=== PATIENT | female | born 1980 | race Caucasian/White ===

== ENCOUNTER 2017-02-02 06:52 | Emergency (ER) | payer OTHER ==
[2017-02-02 07:17] VITALS: TEMP 98.2; BMI 22.0
[2017-02-02] MEDS ORDERED: SODIUM CHLORIDE 1,000 ML IV STA (07:35)
[2017-02-02] MEDS ORDERED: ONDANSETRON 4 MG/2 ML VIAL IVPUSH ONE (07:49)
[2017-02-02] MEDS ORDERED: ACETAMINOPHEN 1000 MG/100 ML VIAL (NON FORMULARY) IVPB ONE (07:49)
--- NOTE | 2017-02-02 07:51 | PDOC ---
History of Present Illness - General Chief Complaint: Pain, Acute Stated Complaint: VOMITING, ABDOMINAL PAIN Time Seen by Provider: 02/02/17 07:35 - History of Present Illness Initial Comments: 02/02/17 07:46 36 yo F with no pmh who presents with left sided flank pain. Pt. reports crampy , dull, unremitting, left sided flank pain with radiation to LLQ beginning at 0503 this AM. Pain was initially sharp,but now dull. Endorses 3 episodes of non biliary, non bloody emesis this AM and subjective fevers. Pain worse with supine positioning. No alleviators. Denies chest pain, SOB, Lightheadedness, diarrhea, constipation, dysuria, hematuria, blood per rectum, and weakness. Currently menstruating. Denies h/o renal stones, or pyelonephritis. No OTC analgesia. No NKDA. Past History - Past Medical History Allergies/Adverse Reactions: Allergies Allergy/AdvReac Type Severity Reaction Status Date / Time No Known Allergies Allergy Verified 02/02/17 07:11 Home Medications: Ambulatory Orders Naproxen [Naprosyn -] 250 mg PO QID PRN 5 Days #20 tablet MDD 4 02/02/17 COPD: No - Reproductive History Is Patient Now?: No - Suicide/Smoking/Psychosocial Hx Smoking History: Never smoked Have you smoked in the past 12 months: No Information on smoking cessation initiated: No Hx Alcohol Use: Yes (socially) Drug/Substance Use Hx: No Substance Use Type: None Review of Systems - Review of Systems Comments:: 02/02/17 07:57 GENERAL/CONSTITUTIONAL: No fever or chills. No weakness. HEAD, EYES, EARS, NOSE AND THROAT: No change in vision. No ear pain or discharge. No sore throat.- CARDIOVASCULAR: No chest pain or shortness of breath RESPIRATORY: No cough, wheezing, or hemoptysis. GASTROINTESTINAL:+ Abdominal LLQ pain. No nausea, vomiting, diarrhea or constipation. GENITOURINARY: + Suprapubic pain. No dysuria, frequency, or change in urination. MUSCULOSKELETAL: No joint or muscle swelling or pain. No neck or back pain. SKIN: No rash NEUROLOGIC: No headache, vertigo, loss of consciousness, or change in strength/ sensation. ENDOCRINE: No increased thirst. No abnormal weight change HEMATOLOGIC/LYMPHATIC: No anemia, easy bleeding, or history of blood clots. ALLERGIC/IMMUNOLOGIC: No hives or skin allergy. *Physical Exam - Vital Signs Last Vital Signs Temp Pulse Resp BP Pulse Ox 98.2 F 72 20 135/90 100 02/02/17 07:12 02/02/17 07:12 02/02/17 07:12 02/02/17 07:12 02/02/17 07:12 - Physical Exam Comments: 02/02/17 07:58 GENERAL: Awake, alert, and fully oriented, in no acute distress HEAD: No signs of trauma, normocephalic, atraumatic EYES: PERRLA, EOMI, sclera anicteric, conjunctiva clear ENT: Hearing grossly normal, nares patent, oropharynx clear without exudates. Moist mucosa NECK: Normal ROM, no JVD, or masses LUNGS: No distress, speaks full sentences, clear to auscultation bilaterally HEART: Regular rate and rhythm, normal S1 and S2, no murmurs, rubs or gallops, peripheral pulses normal and equal bilaterally. ABDOMEN: Soft, LLQ ttp and L sided flank ttp, normoactive bowel sounds. No guarding, no rebound. No masses. Absent olea or [place] point ttp. EXTREMITIES : Normal inspection, Normal range of motion, no edema. No clubbing or cyanosis. SKIN: Warm, Dry, normal turgor, no rashes or lesions noted. ED Treatment Course - LABORATORY CBC & Chemistry Diagram: 02/02/17 07:52 02/02/17 07:52 Medical Decision Making - Medical Decision Making 02/02/17 08:00 36 yo F with no pmh who arrives with crampy left sided flank pain with radiation to LLQ 2 hours [employer]. Asx. with non biliary, non bloody emesis this AM and subjective fevers. Denies dysuria, hematuria, blood per rectum, and is currently menstruating. Physical exam reveals left flank ttp and LLQ ttp. Pt. is hemodynamically stable. Patient exhibiting s/s of nephrolithiasis vs pyelnoephtritis ( less likely). Will obtain CT AP. Patient with symptom of mild LLQ ttp. It is reasonable, although unlikely to consider ovarian pathology ovarian torsion vs ovarian cyst. ED Course: CBC, CMP, Lipase, UA, Urine Cx. 1 L NS, Tylenol 1000 mg IVPB, Zofran [address] AP Urine Preg 02/02/17 09:03 CBC: 13.9 02/02/17 09:04 UA: 3 + Blood. Neg Nitrites 02/02/17 09:39 CT AP: 4 mm calculus along left posterolateral wall of bladder. 02/02/17 09:41 Pt. is stable and ready for d/c with return precautions. Naproxen sent to pharmacy. 02/02/17 09:50 Preliminary Leuk esterase negative *DC/Admit/Observation/Transfer Diagnosis at time of Disposition: Bladder calculi - Discharge Dispostion Disposition: HOME Condition at time of disposition: Stable Admit: No - Prescriptions Prescriptions: Naproxen [Naprosyn -] 250 mg PO QID PRN 5 Days #20 tablet MDD 4 PRN Reason: Pain - Referrals Referrals: Gama Evans MD [Primary Care Provider] - Khurram Camara MD [Staff Physician] - - Patient Instructions Printed Discharge Instructions: DI for Kidney Stones, DI for Extracorporeal Shock Wave Lithotripsy Additional Instructions: Please return to the emergency department with any new or worsening symptoms or concerns. Please follow up with urology if symptoms persist. - Post Discharge Activity - Attestations Physician Attestion: 02/02/17 09:45 I attest to the information provided in this note.
[2017-02-02] MEDS ORDERED: ACETAMINOPHEN INJECTION 100 ML IVPB ONE (07:59)
--- NOTE | 2017-02-02 08:06 | PDOC ---
Attending Attestation - Resident Resident Name: Rocky Campos - ED Attending Attestation I have performed the following: I have examined & evaluated the patient, The case was reviewed & discussed with the resident, I agree w/resident's findings & plan, Exceptions are as noted - HPI HPI: 02/02/17 08:09 36 year old female with no past medical history presents with left flank pain since 4 am. The patient was in her usual state of health yesterday. Noted to wake up at 4 am with left flank pain shart radiating to left lower quadrant. + nausea, and 3 episodes of vomiting. Denies fevers, chills. 1st time episode. currently on menstrual cycle, but denies dysuria, urinary frequency. - Physicial Exam PE: 02/02/17 08:12 GENERAL: NAD, AAOx3 ABD: soft, TTP LLQ. no rebound, no guarding. + left sided CVA tenderness - Medical Decision Making 02/02/17 08:14 Vital Signs Temp Pulse Resp BP Pulse Ox 98.2 F 72 20 135/90 100 02/02/17 07:12 02/02/17 07:12 02/02/17 07:12 02/02/17 07:12 02/02/17 07:12 36 year old F p/w likely pyelonephritis vs. kidney stone. Labs, UA, spiral CT. Symptom control and reassess. 02/02/17 09:30 CBC, BMP 02/02/17 07:52 02/02/17 07:52 CMP Sodium 140 mmol/L (136-145) 02/02/17 07:52 Potassium 4.0 mmol/L (3.5-5.1) 02/02/17 07:52 Chloride 108 mmol/L (98-107) H 02/02/17 07:52 Carbon Dioxide 27 mmol/L (21-32) 02/02/17 07:52 Anion Gap 5 (8-16) L 02/02/17 07:52 BUN 10 mg/dL (7-18) 02/02/17 07:52 Creatinine 0.7 mg/dL (0.55-1.02) 02/02/17 07:52 Creat Clearance w eGFR > 60 (>60) 02/02/17 07:52 Random Glucose 104 mg/dL (74-106) 02/02/17 07:52 Calcium 8.9 mg/dL (8.5-10.1) 02/02/17 07:52 Total Bilirubin 0.6 mg/dL (0.2-1.0) 02/02/17 07:52 AST 23 U/L (15-37) 02/02/17 07:52 ALT 25 U/L (12-78) 02/02/17 07:52 Alkaline Phosphatase 104 U/L (45-117) 02/02/17 07:52 Total Protein 7.2 g/dl (6.4-8.2) 02/02/17 07:52 Albumin 4.2 g/dl (3.4-5.0) 02/02/17 07:52 Lipase 101 U/L (73-393) 02/02/17 07:52 Urine Test Results Urine Color Yellow 02/02/17 07:52 Urine Appearance Clear 02/02/17 07:52 Urine pH 5.0 (5.0-8.0) 02/02/17 07:52 Ur Specific [place] >= 1.030 (1.001-1.035) 02/02/17 07:52 Urine Protein 1+ (NEGATIVE) H 02/02/17 07:52 Urine Glucose (UA) Negative (NEGATIVE) 02/02/17 07:52 Urine Ketones Negative (NEGATIVE) 02/02/17 07:52 Urine Blood 3+ (NEGATIVE) H 02/02/17 07:52 Urine Nitrite Negative (NEGATIVE) 02/02/17 07:52 Urine Bilirubin 1+ (NEGATIVE) H 02/02/17 07:52 Leukocyte esterase pending. If positive, treat with oral antibiotics then discharge. CT scan shows a 4 mm renal stone in the bladder. Discharge diagnosis: kidney stone
[2017-02-02 08:10] LABS: URINE APPEARANCE CLEAR; URINE BILIRUBIN 1+ (NEGATIVE); URINE BLOOD 3+ (NEGATIVE); URINE GLUCOSE (UA) NEGATIVE (NEGATIVE); URINE KETONE NEGATIVE (NEGATIVE); URINE NITRITE NEGATIVE (NEGATIVE); URINE UROBILINOGEN 0.2 mg/dL (0.2-1.0)
[2017-02-02] MEDS ORDERED: KETOROLAC TROMETHAMINE 30 MG/1 ML VIAL IVPUSH ONE (08:18)
[2017-02-02 08:21] LABS: URINE PROTEIN 1+ (NEGATIVE)
[2017-02-02 08:22] LABS: URINE COLOR YELLOW
[2017-02-02 08:32] LABS: BASOPHIL 0.4 % (0-2.0); EOSINOPHIL 0.2 % (0-4.5); MCH 31.3 pg (25.7-33.7); MCHC 34.4 g/dl (32.0-36.0); MEAN CELL VOLUME 91.1 fl (80-96); MEAN PLT VOLUME 8.6 fl (7.5-11.1); NEUTROPHILS 89.1 % (42.8-82.8); PLATELET COUNT 238 K/MM3 (134-434); RDW 13.3 % (11.6-15.6); WHITE BLOOD COUNT 13.9 K/mm3 (4.0-10.0)
[2017-02-02 08:34] LABS: ALBUMIN 4.2 g/dl (3.4-5.0); ALK PHOS 104 U/L (45-117); ANION GAP 5 (8-16); BILIRUBIN,TOTAL 0.6 mg/dL (0.2-1.0); CALCIUM 8.9 mg/dL (8.5-10.1); CO2 27 mmol/L (21-32); CREATININE 0.7 mg/dL (0.55-1.02); GLUCOSE,RANDOM 104 mg/dL (74-106); SGOT/AST 23 U/L (15-37); SGPT/ALT 25 U/L (12-78); TOT PROT 7.2 g/dl (6.4-8.2)
[2017-02-02] MEDS ORDERED: KETOROLAC TROMETHAMINE 60 MG/2 ML VIAL ONE (08:36)
[2017-02-02 10:27] VITALS: BP 123/77; PULSE 70
[2017-02-02 12:50] LABS: URINE LEUK ESTERASE Negative (NEGATIVE)
== END 2017-02-02 10:26 | disposition home or self-care (01) ==
LOC: JER 06:52
PROC: 3E0337Z Introduction of Electrolytic and Water Balance Substance into Peripheral Vein, Percutaneous Approach (ICD-10-PCS; principal; 2017-02-02)
PROC: 3E033NZ Introduction of Analgesics, Hypnotics, Sedatives into Peripheral Vein, Percutaneous Approach (ICD-10-PCS; 2017-02-02)
PROC: 3E033GC Introduction of Other Therapeutic Substance into Peripheral Vein, Percutaneous Approach (ICD-10-PCS; 2017-02-02)
PROC: 3E0333Z Introduction of Anti-inflammatory into Peripheral Vein, Percutaneous Approach (ICD-10-PCS; 2017-02-02)
DX: N21.0 Calculus in bladder (principal)
CPT/HCPCS: 36415; 74176; 80053; 81003; 81015; 83690; 84703; 85025; 87086; 99283-25